=== PATIENT | female | born 1985 | race Caucasian/White ===

== ENCOUNTER 2018-07-13 22:59 | Emergency (ER) | payer OTHER ==
[2018-07-14] MEDS ORDERED: Ketorolac Tromethamine 60 MG/2 ML VIAL ONE (00:34)
--- NOTE | 2018-07-14 07:25 | CT ---
CT MAXILLOFACIAL NONCONTRAST: Date: 07/13/18 Time: 2358 hours HISTORY: 33-year-old female status post acute left facial trauma from fall. FINDINGS: No fracture. Paranasal sinuses and bilateral tympanomastoid cavities are grossly clear. The orbits ar e clear. No soft tissue facial hematoma identified. IMPRESSION: Negative. POS: [facility]
== END 2018-07-14 01:02 | disposition home or self-care (01) ==
LOC: ERS 22:59
DX: R51 Headache (principal); J45.909 Unspecified asthma, uncomplicated; W01.0XXA Fall on same level from slipping, tripping and stumbling without subsequent striking against object, initial encounter
CPT/HCPCS: 70486; 96372; J1885